=== PATIENT | female | born 1960 ===

== ENCOUNTER → 2020-07-31 06:24 | Outpatient (CLI) | payer OTHER | END | disposition home or self-care (01) | LOC: LAB 06:24 | PROVIDERS: ATTEND Internal Medicine Infectious Disease | DX: R05 Cough (principal) ==

== ENCOUNTER 2021-11-04 08:41 | Outpatient (CLI) | payer OTHER | END 2021-11-04 08:45 | disposition home or self-care (01) | LOC: RAD 08:41 | PROVIDERS: ATTEND Orthopaedic Surgery | DX: M25.522 Pain in left elbow (principal) ==